=== PATIENT | female | born 1975 | race Caucasian/White ===

== ENCOUNTER 2024-04-19 08:43 | Emergency (ER) | payer BC ==
[~2024-04-19] VITALS: Ht 167.6 cm; Wt 76.2 kg
[~2024-04-19 08:43] MED LIST: CYCL-1 PO; DIAZ5TAB PO; NAPR-996 PO
[2024-04-19 08:50] VITALS: TEMP 97.7
[2024-04-19] MEDS ORDERED: ketorolac trometh 15mg/ml vial 15 MG/ML ML IV ONE (09:30)
[2024-04-19 09:31] LABS: BASOPHILS # (AUTO) 0.1 X10'3 (0-0.2); BASOPHILS % (AUTO) 0.6 % (0-1); EOSINOPHILS # (AUTO) 0.1 X10'3 (0-0.9); EOSINOPHILS % (AUTO) 1.5 % (0-6); HEMATOCRIT 45.2 % (35.0-45.0); HEMOGLOBIN 14.7 g/dl (12.0-16.0); LYMPHOCYTES # (AUTO) 1.7 X10'3 (1.1-4.8); LYMPHOCYTES % (AUTO) 17.8 % (21-51); MEAN CORPUSCULAR HGB CONC 32.5 g/dL (33.0-36.5); MEAN PLATELET VOLUME 10.9 FL (7.4-10.4); MONOCYTES # (AUTO) 0.6 X10'3 (0-0.9); MONOCYTES % (AUTO) 6.3 % (2-12); NEUTROPHILS # (AUTO) 7.2 X10'3 (1.8-7.7); NEUTROPHILS % (AUTO) 73.8 % (42-75); PLATELET COUNT 218 X10'3 (140-440); RED BLOOD COUNT 5.26 X10'6 (4.20-5.60); RED CELL DISTRIBUTION WIDTH 13.7 % (11.5-14.5); WHITE BLOOD COUNT 9.7 X10'3 (4.5-11.0)
[2024-04-19] MEDS: ondansetron/PF 4mg/2ml inj IV ONE (09:46)
[2024-04-19] MEDS: ketorolac trometh 30MG/ML vial 30 MG/ML VIAL IV ONE (09:46)
[2024-04-19] MEDS: normal saline 1000ML IV soln IVB ONE (09:46)
[2024-04-19 09:49] LABS: BILIRUBIN,URINE NEGATIVE (Neg); CLARITY,URINE CLOUDY (Clear); COLOR,URINE AMBER (Yellow); GLUCOSE, URINE NEGATIVE (Neg); KETONES,URINE TRACE mg/dl (Neg); LEUKOCYTE ESTERASE ,URINE TRACE (Neg); NITRITES, URINE NEGATIVE (Neg); OCCULT BLOOD,URINE LARGE (Neg); PH,URINE 5.5 (4.8-8.0); PROTEIN,URINE 100 mg/dl (Neg); UROBILINOGEN,URINE 0.2 E.U/dL (0.2-1.0)
[2024-04-19 09:51] LABS: URINE HCG NEGATIVE (NEG)
[2024-04-19 09:54] LABS: ANION GAP 9 (8-16); CHLORIDE 105 MMOL/L (99-107); POTASSIUM 3.8 MMOL/L (3.5-5.1); SODIUM 139 MMOL/L (135-145); TOTAL CARBON DIOXIDE 24.9 MMOL/L (24-32)
[2024-04-19 09:57] LABS: RBC,URINE TNTC /HPF (0-2); SQUAMOUS EPITHELIAL CELL,UR MANY /LPF (FEW); UA COLLECTION TYPE CLN CATCH MIDSTREAM
[2024-04-19 09:58] LABS: BACTERIA,URINE 2+ /HPF (Neg)
[2024-04-19 10:08] LABS: ALANINE AMINOTRANSFERASE 16 U/L (12-78); ALBUMIN 3.9 G/DL (3.4-5.0); ALBUMIN/GLOBULIN RATIO 1.1 (1.1-1.5); ALKALINE PHOSPHATASE 70 IU/L (46-116); ASPARTATE AMINO TRANSFERASE 29 U/L (10-37); BILIRUBIN,TOTAL 0.6 MG/DL (0.1-1.0); BLOOD UREA NITROGEN 13 MG/DL (7-18); BUN/CREATININE RATIO 12.4 (10.0-20.0); CREATININE 1.05 MG/DL (0.40-0.90); GLUCOSE 101 MG/DL (70-104); LIPASE 35 U/L (16-77); TOTAL PROTEIN 7.4 G/DL (6.4-8.2); eCRCL 61 ML/MIN; eGFR 56 ML/MIN
[2024-04-19] MEDS ORDERED: iohexol 300mg/ml 100ml inj. ONE (10:33)
[2024-04-19] MEDS ORDERED: SULF1TAB45 PO (10:39)
[2024-04-19] MEDS ORDERED: FLO0.4C PO (11:44)
[2024-04-19 11:55] VITALS: BP 116/68; PULSE 56; RESP 16; O2SAT 98
== END 2024-04-19 11:57 | disposition home or self-care (01) ==
LOC: ER 08:43
DX: N13.9 Obstructive and reflux uropathy, unspecified (principal); M54.50 Low back pain, unspecified; N23 Unspecified renal colic; Z79.899 Other long term (current) drug therapy; Z79.2 Long term (current) use of antibiotics
CPT/HCPCS: 36415; 74177; 80053; 81001; 81025; 83690; 85025; 96361; 96374; 96375; 99285; J1885; J2405; J7030; Q9967

== ENCOUNTER 2024-05-05 04:15 | Emergency (ER) | payer BC ==
[~2024-05-05] VITALS: Ht 167.6 cm; Wt 76.0 kg
[~2024-05-05 04:15] MED LIST changes: +FLO0.4C PO
[2024-05-05 04:19] VITALS: TEMP 97.6
[2024-05-05 04:58] LABS: BILIRUBIN,URINE NEGATIVE (Neg); CLARITY,URINE CLEAR (Clear); COLOR,URINE YELLOW (Yellow); GLUCOSE, URINE NEGATIVE (Neg); KETONES,URINE TRACE mg/dl (Neg); LEUKOCYTE ESTERASE ,URINE TRACE (Neg); NITRITES, URINE NEGATIVE (Neg); OCCULT BLOOD,URINE LARGE (Neg); PROTEIN,URINE NEGATIVE (Neg); UROBILINOGEN,URINE 0.2 E.U/dL (0.2-1.0)
[2024-05-05 05:00] LABS: BASOPHILS # (AUTO) 0.1 X10'3 (0-0.2); BASOPHILS % (AUTO) 0.5 % (0-1); EOSINOPHILS # (AUTO) 0.2 X10'3 (0-0.9); EOSINOPHILS % (AUTO) 1.4 % (0-6); HEMATOCRIT 41.1 % (35.0-45.0); HEMOGLOBIN 13.6 g/dl (12.0-16.0); LYMPHOCYTES # (AUTO) 2.1 X10'3 (1.1-4.8); LYMPHOCYTES % (AUTO) 18.2 % (21-51); MEAN CORPUSCULAR HEMOGLOBIN 28.1 PG (27.0-31.0); MEAN CORPUSCULAR HGB CONC 33.1 g/dL (33.0-36.5); MEAN PLATELET VOLUME 11.4 FL (7.4-10.4); MONOCYTES # (AUTO) 0.9 X10'3 (0-0.9); MONOCYTES % (AUTO) 7.4 % (2-12); NEUTROPHILS # (AUTO) 8.3 X10'3 (1.8-7.7); NEUTROPHILS % (AUTO) 72.5 % (42-75); PLATELET COUNT 240 X10'3 (140-440); RED BLOOD COUNT 4.84 X10'6 (4.20-5.60); RED CELL DISTRIBUTION WIDTH 13.8 % (11.5-14.5); WHITE BLOOD COUNT 11.5 X10'3 (4.5-11.0)
[2024-05-05 05:02] LABS: URINE HCG NEGATIVE (NEG)
[2024-05-05 05:06] LABS: UA COLLECTION TYPE CLN CATCH MIDSTREAM
[2024-05-05 05:07] LABS: SQUAMOUS EPITHELIAL CELL,UR FEW /LPF (FEW); WBC,URINE 0-4 /HPF (0-4)
[2024-05-05 05:08] LABS: BACTERIA,URINE FEW /HPF (Neg)
[2024-05-05 05:12] LABS: ALANINE AMINOTRANSFERASE 17 U/L (12-78); ALBUMIN 3.9 G/DL (3.4-5.0); ALBUMIN/GLOBULIN RATIO 1.3 (1.1-1.5); ALKALINE PHOSPHATASE 70 IU/L (46-116); ANION GAP 8 (8-16); ASPARTATE AMINO TRANSFERASE 21 U/L (10-37); BILIRUBIN,TOTAL 0.7 MG/DL (0.1-1.0); BLOOD UREA NITROGEN 19 MG/DL (7-18); BUN/CREATININE RATIO 14.8 (10.0-20.0); CALCIUM 8.9 MG/DL (8.5-10.1); CHLORIDE 102 MMOL/L (99-107); CREATININE 1.28 MG/DL (0.40-0.90); GLUCOSE 124 MG/DL (70-104); POTASSIUM 3.4 MMOL/L (3.5-5.1); SODIUM 135 MMOL/L (135-145); TOTAL CARBON DIOXIDE 24.9 MMOL/L (24-32); eCRCL 50 ML/MIN; eGFR 45 ML/MIN
[2024-05-05] MEDS: normal saline 1000ml 1,000 ML IV ONE (05:21)
[2024-05-05] MEDS: ondansetron/PF 4mg/2ml inj IV ONE (05:23)
[2024-05-05] MEDS: morphine 4 MG/ML inj SYRINge IV ONE (05:25)
[2024-05-05] MEDS ORDERED: HYDR-3965 PO (05:58)
[2024-05-05] MEDS ORDERED: ONDA-245 PO (05:58)
[2024-05-05 06:15] VITALS: BP 118/62; PULSE 60; RESP 14; O2SAT 100
== END 2024-05-05 06:14 | disposition home or self-care (01) ==
LOC: ER 04:16
DX: N23 Unspecified renal colic (principal); E07.9 Disorder of thyroid, unspecified; Z87.442 Personal history of urinary calculi; Z88.2 Allergy status to sulfonamides; Z79.899 Other long term (current) drug therapy
CPT/HCPCS: 36415; 80053; 81001; 81025; 84145; 85025; 87088; 96361; 96374; 96375; 99285; J2270; J2405; J7030